=== PATIENT | female | born 1995 | race Caucasian/White ===

== ENCOUNTER 2017-06-12 20:07 | Emergency (ER) | payer MEDICAID ==
[~2017-06-12] VITALS: Ht 170.2 cm; Wt 68.2 kg
[2017-06-13] MEDS ORDERED: AZITHROMYCIN 250 MG TABLET PO ONE (00:15)
[2017-06-13] MEDS ORDERED: CefTRIAXone SODIUM 1 GM/VIAL IM ONE (00:15)
[2017-06-13] MEDS ORDERED: LIDOCAINE HCL/PF 1% 2 ML VIAL IM ONE (00:15)
[2017-06-13] MEDS ORDERED: ACETAMINOPHEN 500 MG TABLET PO ONE (00:30)
[2017-06-13] MEDS ORDERED: IBUPROFEN 600 MG TABLET PO ONE (00:30)
[2017-06-13 01:18] VITALS: BP 127/77
== END 2017-06-13 01:20 | disposition home or self-care (01) ==
LOC: EMS 20:10
DX: N34.2 Other urethritis (principal); R42 Dizziness and giddiness; J02.8 Acute pharyngitis due to other specified organisms; B97.89 Other viral agents as the cause of diseases classified elsewhere; R22.1 Localized swelling, mass and lump, neck
CPT/HCPCS: 81002; 81025; 96372; 99284; J0696; J3490